=== PATIENT | female | born 1970 | race African-American/Black ===

== ENCOUNTER 2017-02-19 04:25 | Emergency (ER) | payer MEDICAID ==
[~2017-02-19] VITALS: Ht 170.2 cm; Wt 79.4 kg
[~2017-02-19 04:25] MED LIST: DEPAKOTE250 MG PO; QUETIAPINE FUMA25 MG ORAL
[2017-02-19 04:26] VITALS: BP 106/72
[2017-02-19] MEDS ORDERED: Famotidine 20 MG/ 2ML VIAL IVP ONE (04:30)
[2017-02-19] MEDS ORDERED: Bacitracin Oint UD TOPIC ONE (04:30)
[2017-02-19 05:08] LABS: BASOPHILS % (AUTO) 0.4 % (0.0-2.0); EOSINOPHILS % (AUTO) 1.7 % (0.0-3.0); LYMPHOCYTES % (AUTO) 16.1 % (20.0-45.0); MEAN CORPUSCULAR HEMOGLOBIN 29.3 PG (27.0-31.0); MEAN CORPUSCULAR HGB CONC 31.9 G/DL (32.0-36.0); MEAN CORPUSCULAR VOLUME 92 FL (80-99); MEAN PLATELET VOLUME 7.8 FL (6.5-10.1); MONOCYTES % (AUTO) 6.8 % (1.0-10.0); NEUTROPHILS % (AUTO) 74.9 % (45.0-75.0); PLATELET COUNT 183 K/UL (150-450); RED BLOOD COUNT 4.46 M/UL (4.20-5.40); RED CELL DISTRIBUTION WIDTH 12.2 % (11.6-14.8); WHITE BLOOD COUNT 8.9 K/UL (4.8-10.8)
[2017-02-19 05:09] LABS: KETONES,URINE NEGATIVE (NEGATIVE); LEUKOCYTE ESTERASE ,URINE NEGATIVE (NEGATIVE); NITRITE,URINE NEGATIVE (NEGATIVE); PH,URINE 6 (4.5-8.0); PROTEIN,URINE NEGATIVE (NEGATIVE); UROBILINOGEN,URINE NORMAL MG/DL (0.0-1.0)
--- NOTE | 2017-02-19 05:10 | Emergency Room Report ---
History of Present Illness General Chief Complaint: Pain Source: Patient Present Illness HPI Patient was brought in by EMS from the rehabilitation facility. She states that she has an infection in her lip from bug bites that s causing her to drink toxins. This is causing her to have chest pain. It's also causing her to vomit. She is unable to keep down her medications. She apparently is on Depakote. She has a history of seizures and also bipolar disorder. She recently moved into the rehab facility. Before she was walking a lot and has some L knee pain. She's also had some loose stools. She also has a rash on the R side of her face. No fevers, cough, dysuria, headache. She denies drugs to me (but is in rehab - also see results). + smoker. Juan R SI or HI. No recent seizure. Allergies: Uncoded Allergies: PENICILLIN (Allergy, Unknown, 02/19/17) Patient History Past Medical History: see triage record Social History: Reports: drug use, smoking Social History Narrative in rehab facility Last Menstrual Period: 02/14/17 Now: No : 7 Para: 8 Reviewed Nursing Documentation: PMH: Agreed, PSxH: Agreed Nursing Documentation-PMH History Of Psychiatric Problem: Yes - Bipolar, PTSD, Schizophrenia, Anxiety Review of Systems All Other Systems: negative except mentioned in HPI Physical Exam Vital Signs Date Time Temp Pulse Resp B/P Pulse Ox O2 Delivery O2 Flow Rate FiO2 02/19/17 04:18 98.2 96 18 106/72 99 Room Air Sp02 EP Interpretation: reviewed, normal General Appearance: no apparent distress, alert, GCS 15 Head: normocephalic Eyes: bilateral eye PERRL, bilateral eye Scleral Injection, bilateral eye other - periorbital edema ENT: moist mucus membranes, other - bite lower lip, no drainage, no pharyngeal inflammation Neck: supple Respiratory: chest non-tender, lungs clear, normal breath sounds Cardiovascular #1: regular rate, rhythm Cardiovascular #2: 2+ radial (R) Gastrointestinal: normal inspection, normal bowel sounds, no mass, non- distended, tenderness - minimal epigastric Musculoskeletal: back normal, gait/station normal, normal range of motion, tender - L knee, no effusion, ligaments stable Neurologic: alert, oriented x3, motor strength/tone normal, DTRs symmetric, sensory intact, cerebellar normal, normal gait, speech normal - but pressured Psychiatric: anxious Skin: warm/dry, other - picked lesions on R cheek, see lip Medical Decision Making Diagnostic Impression: Primary Impression: Vomiting Qualified Codes: R11.2 - Nausea with vomiting, unspecified Additional Impressions: Rash Amphetamine abuse Alleged bipolar disorder ER Course Patient presents with vomiting and complaints of chest pain. DDx: GERD, gastritis, viral syndrome, anxiety, Jasmyne Knott tear, mediastinitis amongst others. Emergent evaluation with EKG, CXR, labs. 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 There is no evidence that the lip "bite" is draining. Knee - no fx or internal problem by exam and [place] knee rules. EKG and CXR normal. Labs significant for + amphetamines. Valproate low. Given dose here. Patient tolerating PO well here. When confronted with + tox, she denied recent use. When I called her on this, her story started to change. She still insisted that there were "toxins" in her body. I agreed and stated it was the crystal. She disagreed. She stated she just wanted to leave. [facility] place by tech. Position and tension excellent with normal neurovasc as checked by me. She was discharged back to the rehab facility where she came from. Patient stable for outpatient observation and treatment. Laboratory Tests Test 02/19/17 04:49 02/19/17 04:53 White Blood Count 8.9 K/UL (4.8-10.8) Red Blood Count 4.46 M/UL (4.20-5.40) Hemoglobin 13.1 G/DL (12.0-16.0) Hematocrit 41.1 % (37.0-47.0) Mean Corpuscular Volume 92 FL (80-99) Mean Corpuscular Hemoglobin 29.3 PG (27.0-31.0) Mean Corpuscular Hemoglobin Concent 31.9 G/DL (32.0-36.0) L Red Cell Distribution Width 12.2 % (11.6-14.8) Platelet Count 183 K/UL (150-450) Mean Platelet Volume 7.8 FL (6.5-10.1) Neutrophils (%) (Auto) 74.9 % (45.0-75.0) Lymphocytes (%) (Auto) 16.1 % (20.0-45.0) L Monocytes (%) (Auto) 6.8 % (1.0-10.0) Eosinophils (%) (Auto) 1.7 % (0.0-3.0) Basophils (%) (Auto) 0.4 % (0.0-2.0) Urine Color Pale yellow Urine Appearance Clear Urine pH 6 (4.5-8.0) Urine Specific [place] 1.010 (1.005-1.035) Urine Protein Negative (NEGATIVE) Urine Glucose (UA) Negative (NEGATIVE) Urine Ketones Negative (NEGATIVE) Urine Occult Blood Negative (NEGATIVE) Urine Nitrite Negative (NEGATIVE) Urine Bilirubin Negative (NEGATIVE) Urine Urobilinogen Normal MG/DL (0.0-1.0) Urine Leukocyte Esterase Negative (NEGATIVE) Urine HCG, Qualitative Negative Sodium Level 137 mEQ/L (135-145) Potassium Level 3.8 mEQ/L (3.4-4.9) Chloride Level 97 mEQ/L (98-107) L Carbon Dioxide Level 24 mEQ/L (20-30) Anion Gap 16 (5-15) H Blood Urea Nitrogen 7 mg/dL (7-23) Creatinine 0.6 mg/dL (0.5-0.9) Estimate Glomerular Filtration Rate > 60 mL/min (>60) Glucose Level 130 mg/dL (74-106) H Calcium Level 9.0 mg/dL (8.6-10.2) Total Bilirubin 0.6 mg/dL (0.0-1.2) Aspartate Amino Transferase (AST) 16 U/L (5-40) Alanine Aminotransferase (ALT) 8 U/L (3-33) Alkaline Phosphatase 70 U/L (35-104) Total Creatine Kinase 239 U/L (26-140) H Troponin I < 0.30 ng/mL (<=0.30) Total Protein 6.7 g/dL (6.6-8.7) Albumin 3.9 g/dL (3.5-5.2) Globulin 2.8 g/dL Albumin/Globulin Ratio 1.3 (1.0-2.7) Lipase 22 U/L (< 60) Valproic Acid Level 4 ug/mL (50-100) L Urine Opiates Screen Positive (NEGATIVE) H Urine Barbiturates Screen Negative (NEGATIVE) Phencyclidine (PCP) Screen Negative (NEGATIVE) Urine Amphetamines Screen Positive (NEGATIVE) H Urine Benzodiazepines Screen Negative (NEGATIVE) Urine Cocaine Screen Negative (NEGATIVE) Urine Marijuana (THC) Screen Positive (NEGATIVE) H EKG Diagnostic Results Rate: normal Rhythm: NSR ST Segments: no acute changes Rhythm Strip Diag. Results EP Interpretation: yes Rhythm: NSR, no PVC's, no ectopy Other X-Ray Diagnostic Results Other X-Ray Diagnostic Results : # of Views/Limited Vs Complete: 1 View Indication: Pain EP Interpretation: Yes Interpretation: no dislocation, no soft tissue swelling, no fractures Impression: No acute disease Interpreting ER Provider: Electronic signature Markus Lua MD Last Vital Signs Date Time Temp Pulse Resp B/P Pulse Ox O2 Delivery O2 Flow Rate FiO2 02/19/17 07:45 97.8 83 16 108/73 98 Room Air 81 Status: improved Disposition: HOME, SELF-CARE Condition: Improved Scripts Famotidine (PEPCID) 20 Mg Tablet 20 MG ORAL DAILY, #30 TAB 0 Refills Prov: Markus Lua M.D. 02/19/17 Ondansetron Odt* (ZOFRAN ODT*) 4 Mg Tab.rapdis 4 MG ORAL Q6H Y for Nausea & Vomiting, #6 TAB 0 Refills Prov: Markus Lua M.D. 02/19/17 Bacitracin (Bacitracin) 28.4 Gm Oint...g. 1 APPLIC TOPIC BID, #10 GM Prov: Markus Lua M.D. 02/19/17 Acetaminophen (Tylenol) 325 Mg Tablet 650 MG ORAL Q6H Y for Prn Pain/Headache/Temp > 101, #30 TAB 0 Refills Prov: Markus Lua M.D. 02/19/17 Referrals: [facility]ERR[facility] (PCP) Markus Lua M.D. Feb 19, 2017 05:10
[2017-02-19] MEDS ORDERED: PERMETHRIN60 GM TOPIC (05:20)
[2017-02-19 05:25] LABS: APPEARANCE,URINE CLEAR
[2017-02-19 05:27] LABS: ALANINE AMINOTRANSFERASE 8 U/L (3-33); ALBUMIN/GLOBULIN RATIO 1.3 (1.0-2.7); ANION GAP 16 (5-15); ASPARTATE AMINO TRANSFERASE 16 U/L (5-40); CARBON DIOXIDE 24 mEQ/L (20-30); CHLORIDE 97 mEQ/L (98-107); CREATININE 0.6 mg/dL (0.5-0.9); GLOMERULAR FILTRATION RATE > 60 mL/min (>60); HEMOLYSIS 11; LIPASE 22 U/L (< 60); POTASSIUM 3.8 mEQ/L (3.4-4.9); SODIUM 137 mEQ/L (135-145); TOTAL PROTEIN 6.7 g/dL (6.6-8.7)
[2017-02-19 05:57] LABS: TROPONIN I < 0.30 ng/mL (<=0.30)
[2017-02-19] MEDS ORDERED: Depakote 500mg tab ORAL ONE (06:15)
[2017-02-19 06:24] VITALS: BP 122/82
[2017-02-19 07:24] VITALS: BP 108/73
[2017-02-19] MEDS ORDERED: PEPCID20 MG ORAL (07:29)
[2017-02-19] MEDS ORDERED: TYLENOL325 MG ORAL (07:29)
[2017-02-19] MEDS ORDERED: BACITRACIN15 GM TOPIC (07:29)
[2017-02-19] MEDS ORDERED: ZOFRAN ODT4 MG ORAL (07:29)
[2017-02-19 07:45] VITALS: BP 108/73
--- NOTE | 2017-02-19 09:04 | Diagnostic Imaging Report ---
Indication: Chest pain Technique: XRAY CHEST 1 V Comparison: None Findings: Cardiomediastinal silhouette is within normal limits. There is no consolidation or pleural effusion. Osseous structures demonstrate no acute abnormality. Impression: No acute cardiopulmonary disease.
== END 2017-02-19 07:47 | disposition home or self-care (01) ==
LOC: EDBD 04:25 → EMR 04:39
DX: R11.2 Nausea with vomiting, unspecified (principal); R21 Rash and other nonspecific skin eruption; F15.10 Other stimulant abuse, uncomplicated; F31.9 Bipolar disorder, unspecified; F43.10 Post-traumatic stress disorder, unspecified; F20.9 Schizophrenia, unspecified; F41.9 Anxiety disorder, unspecified; F17.200 Nicotine dependence, unspecified, uncomplicated; Z88.0 Allergy status to penicillin
CPT/HCPCS: 29530; 36415; 71010; 80053; 80164; 80300; 81003; 81025; 82550; 83690; 84484; 85025; 93005; 96374; 96375; 99284; J2405; S0028

== ENCOUNTER 2018-01-12 11:21 | Emergency (ER) | payer MEDICAID ==
[~2018-01-12] VITALS: Ht 170.2 cm; Wt 86.2 kg
[~2018-01-12 11:21] MED LIST changes: +BACITRACIN15 GM TOPIC; +PEPCID20 MG ORAL; +PERMETHRIN60 GM TOPIC; +TYLENOL325 MG ORAL; +ZOFRAN ODT4 MG ORAL
[2018-01-12 11:37] VITALS: BP 115/66
--- NOTE | 2018-01-12 12:25 | Emergency Room Report ---
History of Present Illness General Chief Complaint: Headache Source: Patient Present Illness HPI 47-year-old female patient presents ER for medication refill. Ports that she has been off her Seroquel and Depakote for 3 days since being discharged from a psych facility. Reports that she takes medication for seizures and bipolar disorder. Reports she has not had any seizures during this time. Denies thoughts of hurting herself or anyone O's. Reports pain and migraine symptoms arise when she has been off her medication. Reports history of drug use, states that she wants to become clean.requesting information about shelters. Denies fever, chest pain, shortness of breath, vision changes, abdominal pain. Allergies: Coded Allergies: CODEINE (Verified Allergy, Unknown, 01/12/18) Uncoded Allergies: PENICILLIN (Allergy, Unknown, 02/19/17) Patient History Past Medical History: see triage record Reviewed Nursing Documentation: PMH: Agreed; PSxH: Agreed Nursing Documentation-PMH Past Medical History: No History, Except For Hx Asthma: Yes History Of Psychiatric Problem: Yes - bipolar, ptsd, anxiety Review of Systems All Other Systems: negative except mentioned in HPI Physical Exam Vital Signs Date Time Temp Pulse Resp B/P (MAP) Pulse Ox O2 Delivery O2 Flow Rate FiO2 01/12/18 11:28 97.9 92 18 115/66 98 Room Air 97.9 Sp02 EP Interpretation: reviewed, normal General Appearance: well appearing, no apparent distress, alert, GCS 15, non- toxic Head: normocephalic, atraumatic Eyes: bilateral eye normal inspection, bilateral eye PERRL ENT: hearing grossly normal, normal pharynx, no angioedema, normal voice, uvula midline, moist mucus membranes Neck: full range of motion Respiratory: lungs clear, normal breath sounds, no rhonchi, no respiratory distress, no accessory muscle use, no wheezing, speaking full sentences Cardiovascular #1: regular rate, rhythm, no edema Gastrointestinal: non tender, soft, no mass, non-distended, no guarding, no rebound Genitourinary: no CVA tenderness Musculoskeletal: back normal, digits/nails normal, gait/station normal, normal range of motion, non-tender Neurologic: alert, oriented x3, responsive, motor strength/tone normal, sensory intact Psychiatric: mood/affect normal Medical Decision Making PA Attestation Dr. Jane is my supervising Physician whom patient management has been discussed with. Diagnostic Impression: Primary Impression: Medication refill Additional Impressions: Hx of seizure disorder Hx of bipolar disorder ER Course Pt. presents to the ED requesting prescription refill. Multiple differentials were considered. Vital signs: are WNL, pt. is afebrile ORDERS: PE benign, lungs clear to auscultation, no abdominal tenderness to palpation, full ROM of extremities, ambulating without a limp, Patient denies recent history of seizures, does not believe patient needs labs, workup, imaging at this time. Informed patient ER does not normally provide refills or prescriptions. Contact primary care provider for further treatment. Informed patient ER cannot provide refills in the future; followup, management and prescription of long-term medications must be performed by primary care provider or mental health professional. Do not believe the patient is a danger to herself or others at this time. No focal neuro deficits, alert and oriented x4, patient walking and talking without difficulty. Patient OK for discharge to home. Drink plenty of fluids. Provided with information for shelters and psychiatric urgent care. Don't use drugs. Patient also complaining of constipation x2 days, reports no abdominal pain, no abdominal TTP. Drink plenty of fluids, will provide Colace medication to patient. DISCHARGE: Rx provided for Seroquel Rx provided for Depakote Rx provided for Benadryl Rx provided for Colace At this time pt is stable for d/c to home. Patient is resting comfortably, in no acute distress, nontoxic appearing, talking without difficulty. Patient to take medications as instructed Will provide with patient care instructions and any necessary prescriptions. Care plan and follow-up instructions provided. Patient instructed to follow-up with primary care provider in 3 - 5 days. Patient questions asked and answered. Patient reports understanding and agreement to treatment plan. ER precautions given. Patient instructed to return to ER immediately for any new or worsening of symptoms including but not limited to increasing SOB, persistent fever. - Please note that this Emergency Department Report was dictated using [employer] technology software, occasionally this can lead to erroneous entry secondary to interpretation by the dictation equipment. Last Vital Signs Date Time Temp Pulse Resp B/P (MAP) Pulse Ox O2 Delivery O2 Flow Rate FiO2 01/12/18 11:37 97.9 78 18 115/66 98 Room Air 97.9 Disposition: HOME, SELF-CARE Condition: Stable Scripts Docusate Sodium* (COLACE*) 100 Mg Capsule 100 MG ORAL TWICE A DAY, #6 CAP Prov: Ramón Thomas 01/12/18 Diphenhydramine Hcl* (BENADRYL*) 25 Mg Capsule 25 MG ORAL DAILY PRN for Itching, #20 CAP Prov: Ramón Thomas 01/12/18 Divalproex Sodium* (DEPAKOTE*) 250 Mg Tablet.dr 250 MG PO Q12HR, #40 TAB Prov: Ramón hTomas 01/12/18 Quetiapine Fumarate* (SEROQUEL*) 25 Mg Tablet 25 MG ORAL DAILY, #20 TAB Prov: Ramón Thomas 01/12/18 Patient Instructions: Bipolar Disorder, Constipation, Adult, [id number], Medicine Refill at the Emergency Department, Seizure, Adult Additional Instructions: Followup with primary care provider mental health professional. Contact mental health urgent care and shelters to arrange living. Take medications as directed. Drink plenty of fluids, take Tylenol for pain symptoms. Patient questions asked and answered. ER precautions given, patient instructed to return to ER immediately for any new or worsening of symptoms. Ramón Thomas Jan 12, 2018 12:25
[2018-01-12] MEDS ORDERED: COLACE100 MG ORAL (12:28)
[2018-01-12] MEDS ORDERED: DEPAKOTE250 MG PO (12:28)
[2018-01-12] MEDS ORDERED: SEROQUEL25 MG ORAL (12:28)
[2018-01-12] MEDS ORDERED: BENADRYL25 MG ORAL (12:28)
[2018-01-12] MEDS ORDERED: Acetaminophen 500mg (ES) tab ORAL ONE (12:30)
[2018-01-12 12:34] VITALS: BP 115/66
== END 2018-01-12 12:39 | disposition home or self-care (01) ==
LOC: EMR 12:24
DX: R51 Headache (principal); F31.9 Bipolar disorder, unspecified; G40.909 Epilepsy, unspecified, not intractable, without status epilepticus; Z88.0 Allergy status to penicillin; Z88.6 Allergy status to analgesic agent; J45.909 Unspecified asthma, uncomplicated; F41.9 Anxiety disorder, unspecified; F43.10 Post-traumatic stress disorder, unspecified; Z76.0 Encounter for issue of repeat prescription
CPT/HCPCS: 99284